=== PATIENT | male | born 1960 | race Hispanic/Latino ===

== ENCOUNTER 2019-01-17 09:02 | Outpatient (CLI) | payer OTHER | END 2019-01-17 22:26 | disposition home or self-care (01) | LOC: RAD 09:02 | DX: R06.02 Shortness of breath (principal) ==

== ENCOUNTER 2021-11-09 19:33 | Emergency (ER) | payer OTHER ==
[~2021-11-09] VITALS: Ht 170.2 cm; Wt 136.1 kg
[2021-11-09 19:38] VITALS: BP 179/87; TEMP 98.5
[2021-11-09 20:33] LABS: POTASSIUM 3.5 mmol/L (3.6-5.2)
[2021-11-09 20:40] LABS: PLATELET COUNT 296 K/uL (142-355)
== END 2021-11-09 22:30 | disposition left against medical advice (07) ==
LOC: ED 19:33
PROVIDERS: Family Medicine
DX: J44.1 Chronic obstructive pulmonary disease with (acute) exacerbation (principal); I10 Essential (primary) hypertension; R06.03 Acute respiratory distress; F17.220 Nicotine dependence, chewing tobacco, uncomplicated
CPT/HCPCS: 36415; 80053; 82150; 83880; 84484; 85027; 87040; 93005; 94664; 96360; 96374; 99284; J2930

== ENCOUNTER 2021-12-18 15:14 | Outpatient (CLI) | payer OTHER | END 2021-12-18 19:17 | disposition home or self-care (01) | LOC: RAD 15:14 | PROVIDERS: ATTEND Nurse Practitioner Family | DX: R05.3 Chronic cough (principal) ==